=== PATIENT | male | born 1975 | race Caucasian/White ===

== ENCOUNTER 2019-08-11 12:49 | Emergency (ER) | payer OTHER ==
[2019-08-11] MEDS ORDERED: HYDROcodone/ACETAMIN 5-325 MG* 1 TAB PO ONE (12:53)
[2019-08-11 12:57] VITALS: BP 167/98
--- OUTSIDE RECORDS SUMMARY | 2019-08-11 12:57 | XMS REPORT | Continuity of Care Document ---
:1975 External Reference #:[id number] Author Name Waldo Mae NP (transmitted by agent of provider Caitie Corrigan) Address [address], [place] [address] Problems Active Problems Provider Date Disorder of shoulder Nliay Cullen MD Onset: 03/08/2018 Lateral epicondylitis Nilay Cullen MD Onset: 01/25/2018 Social History Type Date Description Comments Sex Unknown ETOH Use Currently consumes 14 drinks per week alcohol Tobacco Use Start: Unknown Patient has never smoked Smoking Status Reviewed: 07/09/19 Patient has never smoked Exercise Exercises sporadically bike,hike,swim and Type/Frequency snowboard. Allergies, Adverse Reactions, Alerts Description No Known Drug Allergies Medications Active Medications SIG Qnty Indications Ordering Provider Date Ibuprofen Unknown History Medications Hydrocodone 1 tab by 20tabs Yesi 02/26/2019 - Bitartrate/Acetaminophen mouth every DeBuck, M.D. 05/06/2019 5-300mg Tablets 4-6 hours as needed for pain Medications Administered in Office Medication SIG Qnty Indications Ordering Provider Date Celestone 3 mg and 3mg Nilay Cullen MD 03/08/2018 Injection Celestone 3 mg and 3mg Nilay Cullen MD 01/25/2018 Injection Immunizations CPT Code Status Date Vaccine Lot # [id number] Given 07/09/2019 Tdap - Tetanus/Diptheria/Acellular Pertussis [id number] Vital Signs Date Vital Result Comment 07/09/2019 10:56am Height 72 inches 6'0" Weight 194.38 lb Heart Rate 58 /min BP Systolic 121 mmHg BP Diastolic 76 mmHg O2 % BldC Oximetry 98 % BMI (Body Mass Index) 26.4 kg/m2 05/07/2019 3:01pm Height 72 inches 6'0" Weight 185.00 lb Respiratory Rate 18 /min Body Temperature 97.5 F Pain Level 1 BMI (Body Mass Index) 25.1 kg/m2 Results Description No Information Available Procedures Date Code Description Status 02/26/2019 45153 Short Arm Splint Application Completed Medical Devices Description No Information Available Encounters Type Date Location Provider Dx Diagnosis Office Visit 07/09/2019 [facility] Internal Waldo CANDIDA Mae Z00.00 Encntr for general 11:00a Medicine - [facility] adult medical exam w/o abnormal findings Z13.220 Encounter for screening for lipoid disorders Z13.1 Encounter for screening for diabetes mellitus Z23 Encounter for immunization Office 05/07/2019 [place] S63.641D Sprain of Visit 2:45p [facility] [place] metacarpophalangeal [place] joint of right thumb, subs S43.52xD Sprain of left acromioclavicular joint, subsequent encounter Office 03/14/2019 [place] S63.641D Sprain of Visit 9:30a [facility] at [place] metacarpophalangeal [place] joint of right thumb, subs S43.52xD Sprain of left acromioclavicular joint, subsequent encounter Office 02/26/2019 [place] S63.641A Sprain of Visit 1:30p Orthoped[facility] at [facility], metacarpophalangeal [place] RPA-C joint of right thumb, init S43.52xA Sprain of left acromioclavicular joint, initial encounter Assessments Date Code Description Provider 07/09/2019 Z00.00 Encounter for general adult medical Waldo Mae NP examination without abnormal findings 07/09/2019 Z13.220 Encounter for screening for lipoid Waldojoey Mae NP disorders 07/09/2019 Z13.1 Encounter for screening for diabetes Waldo Mae NP mellitus 07/09/2019 Z23 Encounter for immunization Waldo Mae NP 05/07/2019 S63.641D Sprain of metacarpophalangeal joint of Yesi Sargent M.D. right thumb, subsequent encounter 05/07/2019 S43.52xD Sprain of left acromioclavicular joint, Yesi Sargent M.D. subsequent encounter 03/14/2019 S63.641D Sprain of metacarpophalangeal joint of Yesi Sargent M.D. right thumb, subsequent encounter 03/14/2019 S43.52xD Sprain of left acromioclavicular joint, Yesi Sargent M.D. subsequent encounter 02/26/2019 S63.641A Sprain of metacarpophalangeal joint of Arabella Davila, RPA-C right thumb, initial encounter 02/26/2019 S43.52xA Sprain of left acromioclavicular joint, Arabella Davila, RPA-C initial encounter Plan of Treatment Future Appointment(s):07/14/2020 9:20 am - [facility] [place] Mae NPZ00.00 Encounter for general adult medical examination without abnormal findingsComments:VACCINES:Flu shot every year in the fall.You received your tetanus booster today. SCREENING:Cholesterol and fasting blood glucose yearly.Colon cancer screening per GI.Prostate cancer: Screening at age 50 if you have a first degree relative that had prostate cancer.Follow up:1 yr PE and PRNZ13.220 Encounter for screening for lipoid [id number] Encounter for screening for diabetes [id number] Encounter for immunization Functional Status Description No Information Available Mental Status Description No Information Available Referrals Description No Information Available
--- NOTE | 2019-08-11 13:36 | UC ---
Shoulder Pain HPI - HPI Summary HPI Summary: 44 yo male presents, accompanied by , with RIGHT shoulder injury. 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 [place] a pop and had immediate pain in his right shoulder. Since that time has had severe pain and decreased ROM. Nothing OTC for his discomfort. His drove him directly to . Denies numbness or tingling. He is right handed. Denies headache, head injury, LOC, neck/chest/rib pain, SOB. - History of Current Complaint Chief Complaint: UCUpperExtremity Stated Complaint: SHOULDER INJURY Time Seen by Provider: 08/11/19 13:35 Hx Obtained From: Patient, Family/Box Repairer Onset/Duration: Sudden Onset Severity Initially: Severe Severity Currently: Severe Pain Intensity: 9 Pain Scale Used: 0-10 Numeric - Allergies/Home Medications Allergies/Adverse Reactions: Allergies Allergy/AdvReac Type Severity Reaction Status Date / Time No Known Allergies Allergy Verified 08/11/19 12:56 Home Medications: Home Medications Cyclobenzaprine TAB* [Flexeril 10 MG TAB*] 10 mg PO BID PRN #20 tab 08/11/19 [Rx ] HYDROcodone/ACETAMIN 5-325 MG* [Empire 5-325 TAB*] 1 tab PO Q8H PRN #12 tab MDD 3 08/11/19 [Rx] PMH/Surg Hx/FS Hx/Imm Hx - Additional Past Medical History Additional PMH: None - Surgical History Surgical History: None - Family History Known Family History: Positive: None - Social History Occupation: Employed Full-time Lives: With Family Alcohol Use: Daily Alcohol Amount: 2-3 beers a day Substance Use Type: Marijuana Smoking Status (MU): Never Smoked Tobacco Review of Systems All Other Systems Reviewed And Are Negative: No Constitutional: Positive: Negative Skin: Positive: Negative Respiratory: Positive: Negative Cardiovascular: Positive: Negative Neurovascular: Positive: Negative Musculoskeletal: Positive: Other: - Right shoulder injury Neurological/Mental Status: Positive: Negative Psychological: Positive: Negative Physical Exam - Summary Physical Exam Summary: GENERAL: NAD. WDWN. No pain distress. SKIN: No rashes, sores, lesions, or open wounds. CHEST: No accessory muscle use. Breathing comfortably and in no distress. CV: Pulses intact radial and ulnar. Cap refill <2seconds MSK: RIGHT SHOULDER: Flexion to ~30deg before pain stops him. Keeps held at side. TTP about AC joint with obvious deformity. No tenting. 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 NTTP ribs or chest wall. NTTP elbow, wrist, or hand. FROM elbow and wrist. Moves all fingers. NTTP c spine. NEURO: Alert. Sensations intact C4-T1. PSYCH: Age appropriate behavior. Triage Information Reviewed: Yes Vital Signs: Initial Vital Signs Temp 99.3 F 08/11/19 12:53 Pulse 60 08/11/19 12:53 Resp 16 08/11/19 12:53 BP 167/98 08/11/19 12:53 Pulse Ox 97 08/11/19 12:53 Vital Signs Reviewed: Yes Diagnostics - Radiology Shoulder XR: Radiology Interpretation Completed By: Radiologist Summary of Radiographic Findings: FINDINGS: The clavicle is displaced superiorly 1 bone width relative to the acromion and there is widening of the acromioclavicular joint measuring at least 9 mm. Remaining visualized bones are intact and anatomically aligned. IMPRESSION: FINDINGS ARE CONSISTENT WITH RAMY GRADE 3 RIGHT AC SEPARATION INJURY. Shoulder Course/Dx - Course Course Of Treatment: XR as above. iSTOP: Reference #: [id number]. In the clinic pt was given 1 tab norco 5/325 for his pain. He was placed in a shoulder immobilizer. Advised to rest, ice, and use the immobilizer as much as possible. Rx for norco and flexeril - do not take together. Take ibuprofen as directed. F/u with Ortho within 1 week for a recheck - Differential Dx/Diagnosis Provider Diagnosis: Acromioclavicular joint separation, type 3 Discharge ED - Sign-Out/Discharge Documenting (check all that apply): Patient Departure All imaging exams completed and their final reports reviewed: Yes - Discharge Plan Condition: Stable Disposition: HOME Prescriptions: Cyclobenzaprine TAB* [Flexeril 10 MG TAB*] 10 mg PO BID PRN #20 tab PRN Reason: Pain - Moderate HYDROcodone/ACETAMIN 5-325 MG* [Empire 5-325 TAB*] 1 tab PO Q8H PRN #12 tab MDD 3 PRN Reason: Pain - Severe Patient Education Materials: Acromioclavicular Separation (ED) Referrals: No Primary Care Phys,NOPCP [Primary Care Provider] - Wei Yao MD [Medical Doctor] - As Soon As Possible Additional Instructions: If you develop a fever, shortness of breath, chest pain, new or worsening symptoms - please call your PCP or go to the ED immediately. Your blood pressure was high at todays visit. Please see your primary provider within 4 weeks for recheck and re-evaluation. 1) Use the shoulder immobilizer as much as possible 2) Rest and apply ice to your shoulder 3) Take ibuprofen as directed for pain. Take the NORCO and flexeril as directed -- I recommend not taking these together as these may make you sleepy/drowsy. 4) I recommend that you call Orthopedics at the number below to schedule an appointment for early next week for further evaluation - Billing Disposition and Condition Condition: STABLE Disposition: Home
== END 2019-08-11 14:26 | disposition home or self-care (01) ==
LOC: UCEAST 12:49
DX: S43.101A Unspecified dislocation of right acromioclavicular joint, initial encounter (principal); V00.311A Fall from snowboard, initial encounter; Y93.23 Activity, snow (alpine) (downhill) skiing, snowboarding, sledding, tobogganing and snow tubing; Y92.9 Unspecified place or not applicable
CPT/HCPCS: 99212; G0463